=== PATIENT | male | born 1940 | race Caucasian/White ===

== ENCOUNTER 2017-04-20 11:50 | Emergency (ER) | payer MEDICARE ==
[~2017-04-20] VITALS: Ht 177.8 cm; Wt 75.0 kg
[~2017-04-20 11:50] MED LIST: ACET-1757 PO; ALEN70TA5 PO; ALLO100T30 PO; AMOX1TAB64 PO; AMPI3VIA IV; ASPI-515 PO; BISA10SU2 PR; CARV12.52 PO; CLOP75TA PO; CYCL-259 PO; DOCU-131 PO; DOXY100C2 PO; DOXY100T PO; ENOX40SY4 SQ; FOLI-17 PO; GABA-826 PO; HEPA5000 SQ; HYDR-3237 PO; HYDR200T PO; LISI-167 PO; LISI1TAB3 PO; MAG-27 PO; MAGN400O7 PO; METH15TA PO; METO5AMP PO; MULT-658 PO; ONDA4TAB10 PO; OXYC5CAP2 PO; POTA10CA PO; PRED5TAB PO; ROSU10TA PO; SIMV10TA3 PO; SPIR25TA3 PO; TRAM50TA2 PO; WARF5TAB7 PO; [UNRECOGNIZED DRUG - CODE] PO
[2017-04-20 14:57] VITALS: BP 128/64
== END 2017-04-20 15:00 | disposition home or self-care (01) ==
LOC: ED 13:39
DX: S00.83XA Contusion of other part of head, initial encounter (principal); S50.311A Abrasion of right elbow, initial encounter; I10 Essential (primary) hypertension; E78.5 Hyperlipidemia, unspecified; Z86.718 Personal history of other venous thrombosis and embolism; Z86.73 Personal history of transient ischemic attack (TIA), and cerebral infarction without residual deficits; W01.0XXA Fall on same level from slipping, tripping and stumbling without subsequent striking against object, initial encounter; Y93.89 Activity, other specified; Y92.410 Unspecified street and highway as the place of occurrence of the external cause; Y99.9 Unspecified external cause status
CPT/HCPCS: 70450; 99284

== ENCOUNTER 2017-04-27 12:13 | Emergency (ER) | payer MEDICARE ==
[~2017-04-27] VITALS: Ht 180.3 cm; Wt 73.6 kg
[2017-04-27 12:26] VITALS: BP 128/59
== END 2017-04-27 13:24 | disposition home or self-care (01) ==
LOC: ED 13:01
DX: S41.111D Laceration without foreign body of right upper arm, subsequent encounter (principal); X58.XXXD Exposure to other specified factors, subsequent encounter; Y92.89 Other specified places as the place of occurrence of the external cause; Y99.8 Other external cause status
CPT/HCPCS: 99283

== ENCOUNTER 2017-10-20 02:05 | Emergency (ER) | payer MEDICARE ==
[~2017-10-20] VITALS: Ht 177.8 cm; Wt 69.5 kg
[~2017-10-20 02:05] MED LIST changes: -HEPA5000 SQ; +HEPA50002 SQ
[2017-10-20] MEDS ORDERED: OXYMETAZOLINE NASAL SPRAY 0.05%, 15ML ONE (02:33)
[2017-10-20] MEDS ORDERED: PHENYLEPHRINE NASAL 1%, 15ML SPRAY ONE (02:33)
[2017-10-20 04:50] VITALS: BP 136/74
== END 2017-10-20 05:58 ==
LOC: ED 05:30
DX: R04.0 Epistaxis (principal); I25.2 Old myocardial infarction; I10 Essential (primary) hypertension; E78.5 Hyperlipidemia, unspecified; M32.9 Systemic lupus erythematosus, unspecified; Z86.718 Personal history of other venous thrombosis and embolism; Z86.73 Personal history of transient ischemic attack (TIA), and cerebral infarction without residual deficits
CPT/HCPCS: 30901; 99284